=== PATIENT | female | born 1960 | race Caucasian/White ===

== ENCOUNTER 2022-11-07 10:00 | Outpatient (RCR) | payer BC, SELFPAY ==
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
--- NOTE | 2022-11-07 10:28 | HP.PTDCSUM ---
It has been my pleasure to treat KASANDRA HERRREA referred by Dr. Lindsey Correia MD, with the diagnosis of OVER-ACTIVE BLADDER, URGE INCONTINENCE & H/O PELVIC FX WITH INTERMIT. PAIN for a total of 9 visit(s). Discharge Date: 11/07/22 Please see the following information for a summary of their discharge status. Subjective: PATIENT REPORTS HER SYMPTOMS ARE IMPROVING. I KNOW THE EXERCISES ARE WORKING. I CAN'T EVEN TELL YOU HOW HORRIBLE IT WAS BEFORE. PATIENT REPORTS THIS IS THE BEST HER INCONTINENCE HAS BEEN IN 8 PLUS YEARS. I HAVE BEEN SUFFERING WITH THIS FOR A LONG TIME. % Improvement: 85 Objective/Function: PATIENT WAS SEEN TODAY FOR RE-ASSESSMENT OF PROGRESS TOWARD THE SET PT GOALS AND THE NEED FOR FURTHER PHYSICAL THERAPY VS READINESS FOR DISCHARGE. UPON EXAM TODAY ALL GOALS HAVE BEEN MET AND PATIENT IS INDEP WITH A HEP. FUNCTIONAL SCREEN: Incontinence Impact Questionnaire Score: 3. Urogenital Distress Inventory Score: 2 Goal 1:: PATIENT WILL SUCCESSFULLY DELAY VOIDING FOR 15-30 MINUTES WHEN URGENCY OCCURS Goal Progress: Goal Met Goal 2:: NORMALIZE VOIDING FREQUENCEY TO EVERY 3-4 HOURS. Goal Progress: Goal Met Goal 3:: DECREASE URINARY LEAKAGE EPISODES TO ONE OR LESS PER DAY Goal Progress: Goal Met Goal 4:: PATIENT WILL DEMONSTRATE/COMMUNICATE 10 CONSISTENT AND CONSECUTIVE 10 SECOND PELVIC FLOOR MUSCLE CONTRACTIONS TO DEMONSTRATE IMPROVED PELVIC FLOOR ENDURANCE. Goal Progress: Goal Met Goal 5:: PATIENT WILL BE INDEP WITH A HEP/HOME INSTRUCTIONS FOR CONTINUED IMPROVEMENT ONCE FORMAL PHYSICAL THERAPY CONCLUDES. Goal Progress: Goal Met Plan: D/C. PATIENT IS AGREEABLE. If there are questions or concerns regarding this patient's physical therapy, please feel free to call me at [phone]. Thank you for the referral of this patient. Sincerely, Nory Vega, PT, Cert MDT
== END 2022-11-07 19:00 | disposition home or self-care (01) ==
LOC: PT 10:00
PROVIDERS: PCP Nurse Practitioner Family; Referring Provider Urology; Visit Provider Urology
DX: S32.9XXD Fracture of unspecified parts of lumbosacral spine and pelvis, subsequent encounter for fracture with routine healing (principal); N39.41 Urge incontinence; N32.81 Overactive bladder; R35.1 Nocturia
CPT/HCPCS: 97162; 97164; 97530